=== PATIENT | female | born 1960 | race Caucasian/White ===

== ENCOUNTER 2023-10-18 21:33 | Emergency (ER) | payer BC ==
[2023-10-18] MEDS: Acetaminophen/HYDROcodone 325-5 MG Tab PO PRN (23:00)
== END 2023-10-18 23:21 | disposition home or self-care (01) ==
LOC: KA.ED 21:33
DX: S83.8X1A Sprain of other specified parts of right knee, initial encounter (principal); Z88.8 Allergy status to other drugs, medicaments and biological substances; W01.0XXA Fall on same level from slipping, tripping and stumbling without subsequent striking against object, initial encounter
CPT/HCPCS: 73562-RT; 99283; A9270-GY